=== PATIENT | male | born 1965 | race Caucasian/White ===

== ENCOUNTER 2023-10-17 11:17 | Emergency (ER) | payer BC, SELFPAY ==
--- NOTE | 2023-10-17 11:34 | ED.URI ---
HPI - URI/Sore Throat General Chief Complaint: Upper Respiratory Infection Stated Complaint: Cough, congestion History of Present Illness HPI Narrative: Pt is a 58 y/o male, without significant PMHx, presents to with 3 week hx of nasal congestion, purulent nasal discharge and productive cough at times. He denies associated fevers or chills. He states his symptoms began with a cold but have since improved some, now with nasal discharge and productive cough, some wheezing is reported, worse for the past 3 days. He does not smoke. He denies known sick contacts. He has taken OTC medications without relief. He denies associated CP, SOB, abdominal pain, NVDC Or urinary symptoms. He denies any additional associated symptoms or modifying factors. Related Data Allergies Allergy/AdvReac Type Severity Reaction Status Date / Time No Known Allergies Allergy Verified 10/17/23 11:55 Review of Systems ENT: Reports as per HPI Respiratory: Respiratory: Reports as per HPI Exam Const: General: healthy appearing and no acute distress Nutritional Appearance: well nourished Orientation/consciousness: patient oriented x3 HENMT: Head: normal to inspection Ears: external ears normal and TM abnormal (serous pattern bilaterally, TM's are retracted) Face and sinus: normal facial exam and sinus tenderness (sinuses are TTP over the right frontal and maxillary sinus TTP) Teeth and gingiva: dentition normal Throat: posterior oropharynx normal and uvula midline Eyes: Conjunctivae: conjunctivae normal Pupils: Equal, round and reactive pupils present EOM: EOMs intact bilaterally Direct Ophthalmoscopy: no photophobia Neck: Neck: normal visual inspection Chest: Chest palpation & inspection: normal inspection of the chest Resp: Effort & Inspection: normal respiratory effort Auscultation: wheezes inspiratory wheezes (intermittent end expiratory wheeze noted. no rales, rhonchi or diffuse wheezing noted) Cardio: Rate: regular rate Rhythm: regular rhythm Back/Spine/Pelvis: Back: no CVA tenderness Skin: General skin exam: normal color Course Course Emergency Course: suspect post viral ABRS and bronchitis, will treat with Doxycycline, oral steroids, inhaler for rescue and cough suppressant. FU with PCP in 3-5 days if symptoms are not improving. Pt is agreeable with plan. Level of Care: Express Care Visit ([id number]) Vital Signs Vital signs: Vital Signs Temperature 36.6 C 10/17/23 11:39 Pulse Rate 66 10/17/23 11:39 Respiratory Rate 16 10/17/23 11:39 Blood Pressure 137/90 10/17/23 11:39 Pulse Oximetry 100 10/17/23 11:39 Oxygen Delivery Room Air 10/17/23 11:39 Temperature 36.6 C 10/17/23 11:39 Pulse Rate 66 10/17/23 11:39 Respiratory Rate 16 10/17/23 11:39 Blood Pressure 137/90 10/17/23 11:39 Pulse Oximetry 100 10/17/23 11:39 Oxygen Delivery Room Air 10/17/23 11:39 MDM - URI/Sore Throat Differential Diagnosis Differential diagnosis: Likely upper respiratory infection, sinusitis, viral infection and bronchitis Discharge Plan Discharge Clinical Impression: Bronchitis Sinusitis Qualifiers: Sinusitis location: frontal Chronicity: acute Recurrence: non-recurrent Qualified Code(s): J01.10 - Acute frontal sinusitis, unspecified Patient Disposition: Home, Self-Care Condition: Stable Instructions: Antibiotic Form, Sinusitis (ED), Acute Bronchitis (ED) Additional Instructions: START AND COMPLETE ORAL ANTIBIOTICS AND ORAL STEROIDS DIRECTED. USE INHALER AND COUGH SUPPRESSANT FOR ADDED SYMPTOM RELIEF PRESCRIBED. SEE YOUR PRIMARY CARE PROVIDER FOR FOLLOW UP IN 3-5 DAYS IF SYMPTOMS ARE NOT IMPROVING. ER IF CONDITION WORSENS Prescriptions: New prednisone 20 mg tablet 40 mg PO DAILY 5 Days Qty: 10 0RF doxycycline hyclate 100 mg capsule 100 mg PO BID 10 Days Qty: 20 0RF albuterol sulfate 90 mcg/actuation HFA aerosol inhaler 1 inh inhalation QID PRN (Reason: shortness of br
[2023-10-17 11:39] VITALS: BP 137/90; PULSE 66; RESP 16; TEMP 36.6; O2SAT 100
== END 2023-10-17 12:45 | disposition home or self-care (01) ==
PROVIDERS: Emergency Provider Nurse Practitioner Family
DX: J01.10 Acute frontal sinusitis, unspecified (principal); J40 Bronchitis, not specified as acute or chronic
CPT/HCPCS: 99213; G0463